=== PATIENT | female | born 1945 | race Caucasian/White ===

== ENCOUNTER 2017-07-15 13:07 | Emergency (ER) | payer OTHER ==
[~2017-07-15] VITALS: Ht 162.6 cm; Wt 76.2 kg
[2017-07-15 14:51] LABS: PLATELET COUNT 279 x10^3mcL (130-400); RED CELL DISTRIBUTION WIDTH 12.6 % (11.5-14.5)
[2017-07-15 14:53] LABS: BASOPHIL % 0 % (0-2)
[2017-07-15 14:59] LABS: CALCIUM 8.8 mg/dL (8.5-10.1); CARBON DIOXIDE 25.3 mmol/L (21-32); CHLORIDE SERUM 107 mmol/L (98-107); CREATININE SERUM 0.5 mg/dL (0.6-1.0); GLUCOSE SERUM 92 mg/dL (74-106); POTASSIUM SERUM 3.6 mmol/L (3.5-5.1); SODIUM SERUM 141 mmol/L (136-145)
[2017-07-15 15:11] LABS: ALBUMIN 3.6 g/dL (3.4-5.0); ALKALINE PHOSPHATASE 91 U/L (46-116); ALT/SGPT 14 U/L (14-59); AST/SGOT 17 U/L (15-37); BILIRUBIN TOTAL 0.3 mg/dL (0.20-1.00); CHOLESTEROL 204 mg/dL (<200); HDL CHOLESTEROL 64 mg/dL (40-60); MAGNESIUM 2.2 mg/dL (1.8-2.4); T4(THYROXINE) 9.1 ug/dL (4.7-13.3); TOTAL PROTEIN, SERUM 7.2 g/dL (6.4-8.2)
[2017-07-15 17:46] VITALS: BP 134/63
== END 2017-07-15 18:12 | disposition home or self-care (01) ==
LOC: ED 13:07
PROVIDERS: Emergency Medicine
DX: R51 Headache (principal); E78.00 Pure hypercholesterolemia, unspecified; I10 Essential (primary) hypertension
CPT/HCPCS: 83880; J0360; J2405; J3010; J8597; Q0092

== ENCOUNTER 2017-10-17 08:38 | Inpatient (IN) | payer OTHER ==
[~2017-10-17] VITALS: Ht 162.6 cm; Wt 74.6 kg
[2017-10-17 09:00] VITALS: Ht 162.6 cm; Wt 74.6 kg
[2017-10-17 10:42] LABS: CALCIUM 8.8 mg/dL (8.5-10.1); CARBON DIOXIDE 27.1 mmol/L (21-32); CHLORIDE SERUM 102 mmol/L (98-107); CREATININE SERUM 0.8 mg/dL (0.6-1.0); GLUCOSE SERUM 116 mg/dL (74-106); POTASSIUM SERUM 3.6 mmol/L (3.5-5.1); SODIUM SERUM 139 mmol/L (136-145)
[2017-10-17 10:47] LABS: ALBUMIN 3.8 g/dL (3.4-5.0); ALKALINE PHOSPHATASE 87 U/L (46-116); ALT/SGPT 26 U/L (14-59); AST/SGOT 20 U/L (15-37); PLATELET COUNT 249 x10^3mcL (130-400); RED CELL DISTRIBUTION WIDTH 12.7 % (11.5-14.5); TOTAL PROTEIN, SERUM 7.4 g/dL (6.4-8.2)
[2017-10-17 10:48] LABS: BASOPHIL % 0 % (0-2)
[2017-10-17 10:51] LABS: microscopic required? YES; urine erythrocyte TRACE (NEGATIVE)
[2017-10-17 14:08] LABS: CHOLESTEROL/HDL RATIO 2.4; MAGNESIUM 2.1 mg/dL (1.8-2.4); PHOSPHOROUS 2.8 mg/dL (2.5-4.9)
[2017-10-17 14:17] LABS: FREE T4 1.2 ng/dL (0.76-1.46); FREE THYROXINE INDEX 2.6 ug/dL (1.4-4.5); T4(THYROXINE) 8.6 ug/dL (4.7-13.3)
[2017-10-17 15:15] VITALS: BP 142/61
[2017-10-17 17:17] VITALS: BP 167/70
[2017-10-17 18:13] VITALS: BP 153/53
[2017-10-17 19:50] VITALS: BP 126/75
[2017-10-17] MEDS ORDERED: LOVASTATIN40 MG PO (20:47)
[2017-10-17] MEDS ORDERED: COZAAR100 MG PO (20:47)
[2017-10-17] MEDS ORDERED: ATENOLOL50 MG PO (20:47)
[2017-10-17] MEDS ORDERED: CATAPRES0.1 MG PO (20:54)
[2017-10-17 22:02] VITALS: BP 165/66
[2017-10-18] VITALS (7 sets, daily range): BP systolic 135–169; BP diastolic 58–83
[2017-10-18 07:18] LABS: PLATELET COUNT 220 x10^3mcL (130-400); RED CELL DISTRIBUTION WIDTH 12.3 % (11.5-14.5)
[2017-10-18 07:22] LABS: CALCIUM 8.3 mg/dL (8.5-10.1); CARBON DIOXIDE 24.4 mmol/L (21-32); CHLORIDE SERUM 106 mmol/L (98-107); CREATININE SERUM 0.7 mg/dL (0.6-1.0); GLUCOSE SERUM 95 mg/dL (74-106); MAGNESIUM 2.2 mg/dL (1.8-2.4); SODIUM SERUM 140 mmol/L (136-145)
[2017-10-18 11:39] LABS: BAND NEUTROPHIL 10 % (0-10); BASOPHIL 0 % (0-2); MONOCYTE 14 % (0-7); SEGMENTED NEUTROPHILS 43 % (37-75)
[2017-10-18 11:40] LABS: PLATELET MORPHOLOGY PLATELETS NORMAL; rbc morphology (normal/abnorm) NORMAL (NORMAL)
[2017-10-18 13:56] LABS: T3 TOTAL 0.99 ng/mL
[2017-10-19 05:10] VITALS: BP 167/63
[2017-10-19 07:52] LABS: CALCIUM 8.5 mg/dL (8.5-10.1); CARBON DIOXIDE 27.9 mmol/L (21-32); CHLORIDE SERUM 106 mmol/L (98-107); CREATININE SERUM 0.6 mg/dL (0.6-1.0); GLUCOSE SERUM 98 mg/dL (74-106); POTASSIUM SERUM 3.7 mmol/L (3.5-5.1); SODIUM SERUM 143 mmol/L (136-145)
[2017-10-19 08:15] LABS: BASOPHIL % 0.5 % (0-2); PLATELET COUNT 220 x10^3mcL (130-400); RED CELL DISTRIBUTION WIDTH 13.1 % (11.5-14.5)
[2017-10-19 09:59] VITALS: BP 126/57
[2017-10-19] MEDS ORDERED: TEN25 PO (12:09)
[2017-10-19] MEDS ORDERED: COZAAR100 MG PO (12:10)
[2017-10-19] MEDS ORDERED: NOR5 PO (12:10)
[2017-10-19 14:19] VITALS: BP 132/57
[2017-10-19 16:00] VITALS: BP 132/57
== END 2017-10-19 17:19 | disposition home or self-care (01) | DRG 206 ==
LOC: ED 08:38 → DU 09:35 → ED 09:35 → DU 11:10
PROVIDERS: Emergency Medicine; Family Medicine
DX: M94.0 Chondrocostal junction syndrome [Tietze] (principal); J06.9 Acute upper respiratory infection, unspecified; R31.29 Other microscopic hematuria; I10 Essential (primary) hypertension; E78.5 Hyperlipidemia, unspecified; Z68.28 Body mass index [BMI] 28.0-28.9, adult
CPT/HCPCS: 83880; 84439; A9500; J0696; J2785; J3010; Q0092